=== PATIENT | male | born 1960 | race Caucasian/White ===

== ENCOUNTER 2017-10-29 07:30 | Inpatient (IN) | payer BC ==
[2017-10-26 11:56] VITALS: BMI 28.4
[2017-11-05] MEDS ORDERED: fentaNYL (PF) 50 MCG/ML 2 ML AMP IV PRN (14:39)
[2017-11-05] MEDS ORDERED: ONDANSETRON 4 MG/2 ML VIAL IVP ONE (14:39)
[2017-11-05] MEDS ORDERED: DEXAMETHASONE SOD PHOSPHATE 10 MG/ML 1 ML VIAL IV ONE (14:39)
[2017-11-05] MEDS ORDERED: LIDOCAINE 1% 20 ML VIAL (10MG/ML) FOR IV START INTRADERMA PRN (14:39)
[2017-11-05] MEDS ORDERED: MIDAZOLAM 2 MG/2 ML VIAL IV PRN (14:39)
[2017-11-06] MEDS ORDERED: TRANEXAMIC ACID 1,000 MG in SODIUM CHLORIDE 0.9% 50 ML IVPB ONE ×4 (05:00)
[2017-11-06] MEDS ORDERED: ceFAZolin IN SWFI 2 GM/20 ML SYRINGE IVP ONE (05:00)
[2017-11-06] MEDS ORDERED: MELOXICAM 7.5 MG TAB PO ONE (05:00)
[2017-11-06] MEDS ORDERED: ACETAMINOPHEN TAB 500 MG TAB PO ONE (05:00)
[2017-11-06] MEDS ORDERED: ROPIVACAINE 246.25 MG, EPINEPHrine 0.5 MG, KETOROLAC 30 MG, cloNIDine HCL/PF 80 MCG, WA... MISCELLANE ONE ×5 (06:20)
[2017-11-06] MEDS: LACTATED RINGERS 1,000 ML IV SCH ×2 (06:34→14:42)
[2017-11-06] MEDS ORDERED: MAGNESIUM HYDROXIDE 2,400 MG/10 ML CUP PO PRN (06:53)
[2017-11-06] MEDS ORDERED: NALOXONE 0.4 MG/ML 1 ML VIAL IV PRN (06:53)
[2017-11-06] MEDS ORDERED: DIAZEPAM 5 MG TAB PO PRN ×2 (06:53)
[2017-11-06] MEDS ORDERED: ONDANSETRON 4 MG/2 ML VIAL IVP PRN (06:53)
[2017-11-06] MEDS ORDERED: HYDROmorphone 1 MG/ML 1 ML SYRINGE IVP PRN ×3 (06:53)
[2017-11-06] MEDS ORDERED: hydrOXYzine PAMOATE 25 MG CAP PO PRN (06:53)
[2017-11-06] MEDS ORDERED: HYDROcodone/APAP 5-325MG 1 EACH TAB PO PRN (06:53)
[2017-11-06] MEDS ORDERED: ceFAZolin 3,000 MG in SODIUM CHLORIDE 0.9% IRRIGATIO 3,000 ML IRRIGATION ONE (08:02)
--- NOTE | 2017-11-06 09:00 | FL ---
EXAMINATION TYPE: FL guidance operating room, XR Hip Limited RT DATE OF EXAM: 11/06/2017 CLINICAL HISTORY: Hip replacement surgery for pain. TECHNIQUE: Fluoroscopy. Intraoperative limited views right hip. COMPARISON: None. FINDINGS: Fluoroscopic guidance was provided during hip replacement procedure performed by Dr. Mariella sellers. A total of 27 seconds of fluoroscopic time was utilized during the procedure and 2 spot intraop erative images are acquired. Images acquired show metallic hardware right hip satisfactory in position on frontal view. IMPRESSION: As Above.
--- NOTE | 2017-11-06 09:38 | XR ---
EXAMINATION TYPE: XR Hip Limited RT DATE OF EXAM: 11/06/2017 CLINICAL HISTORY: Right hip pain and osteoarthritis. TECHNIQUE: Single AP portable view of right hip is obtained immediately postoperatively. COMPARISON: None. FINDINGS: Metallic hardware from total right hip arthroplasty is seen and appears satisfactory in ali gnment and position. There is evidence of recent surgery with minimal surrounding subcutaneous gas. Some heterotopic ossification or residual spurring superior lateral aspect of acetabulum is noted. IMPRESSION: Metallic hardware from right hip arthroplasty is satisfactory in position.
[2017-11-06] MEDS ORDERED: LACTATED RINGERS 1,000 ML IV ONE (09:45)
--- NOTE | 2017-11-06 12:10 | P.OP ---
Date of Procedure: 11/06/17 Preoperative Diagnosis: Severe osteoarthritis right hip Postoperative Diagnosis: Severe osteoarthritis right hip Procedure(s) Performed: Right total hip arthroplasty with a direct anterior approach Implants: López and nephew Polarstem size 4 standard López & Nephew R3, 3 hole acetabular shell, 54 mm López & Nephew reflection 6.5 mm cancellus screw, 20 mm 2 López [employer] Nephew R3, XLPE 20 acetabular liner López & Nephew Oxinium femoral head 36 m, +8 All components were press-fit. The articulation is Oxinium on polyethylene. Anesthesia: spinal Surgeon: Josh Huff Eap Specialist #1: Meli Piper Estimated Blood Loss (ml): 300 (121 mL returned with Cell Saver) Pathology: other (Femoral head) Condition: stable Disposition: PACU Indications for Procedure: After failure of conservative treatment we discussed the surgical and nonsurgical treatment options at length. Patient wishes to proceed with a total hip arthroplasty with a direct anterior approach. Complications specific to this procedure were discussed at length, including but not limited to infection, leg length discrepancy, dislocation, and nerve injury. Patient is aware of all these complications and informed consent was obtained Operative Findings: The operative findings are consistent with severe osteoarthritis of the right hip Description of Procedure: Patient was seen and evaluated in the preoperative area, consent was reviewed, and the surgical site was marked with a skin marker. Patient was then brought to the operating room and given prophylactic antibiotics intravenously. 1 g of Tranexamic acid was also given. A spinal anesthetic was administered by the anesthesia department. The patient was then placed on the [place] table with the bony prominences well-padded. The hip area was then prepped and draped in usual sterile fashion. A universal timeout was then performed, which confirmed the patient's name, surgical site, ALLERGIES, and procedure being performed. Next the incision site was located at 1 cm distal and 1 cm lateral to the anterior superior iliac spine. The skin and subcutaneous tissues were sharply incised. Incision was carefully dissected down to the fascia overlying the tensor fascia rossy muscle. This fascia was then incised in line with the incision. Next, using blunt finger dissection, the tensor fascia rossy muscle was dissected off its investing fascia. The muscle was then carefully retracted laterally with a cobra retractor over the lateral neck of the femur. Next, the circumflex vessels were identified and cauterized using the AquaMantis device. The anterior hip capsule was then exposed. The capsule was then opened and an inverted T fashion. Cobra retractors were then placed intracapsularly. The proximal femur was then visualized. The femoral neck was then osteotomized appropriate level above the lesser trochanter. Small amount of traction was placed with the [place] table. A small wedge of bone was then removed from the remaining femoral head. Next, using a corkscrew femoral head was easily removed from the acetabulum. On gross visual inspection, the femoral head had complete loss of articular cartilage in multiple periarticular osteophytes. Attention was then turned to the acetabulum. the acetabulum was exposed and any remaining labrum was excised. Sequential reaming of the acetabulum was performed using fluoroscopic guidance. When the appropriate size was reached, a trial was then placed. The position and fit of the trial was checked with fluoroscopy. The trial was then removed. Then, using fluoroscopic guidance, the final implant was impacted at 20 of anteversion and 40 of abduction, and fully seated in the acetabulum. 2 screws were then placed in the acetabulum. Again fluoroscopy was used to check position of the screws. Next, the liner was then impacted, with a 20 elevated liner located in the anterior superior quadrant. Component locking was confirmed. Attention was then directed to the femur. With the aid of the [place] table, the femur was externally rotated to approximately 130, extended, and abducted under the opposite leg. A side hook was then placed under the proximal femur, and the side hook elevator was used to elevate the proximal femur. Retractors were then placed. A capsular release was performed, as well as a release of the conjoined tendon, which afforded excellent visualization of the proximal femur. Next, a box osteotome was used to lateralize the proximal femur. A merchandise execution leader was then used to locate the femoral canal. Sequential broaching was then performed with appropriate size which afforded excellent fixation in the proximal femur. A trial was then placed with appropriate head and neck, and the hip was gently reduced with the aid of the [place] table. Fluoroscopy was then used to check position of the components, as well as to ensure equal leg lengths. The hip was then gently dislocated and the trials were then removed. Final implants were then impacted and the hip was again reduced. Final fluoroscopic x-rays confirmed that the components were in anatomic position, as well as equal leg lengths. The hip was also taken through range of motion, and found to be stable. The hip was then copiously irrigated with antibiotic solution with pulsatile lavage. The hip was then irrigated with Irrisept solution. The soft tissues were then injected with a ropivacaine solution, which consisted of 246.25 mg of ropivacaine, 0.5 mg of epinephrine, 30 mg of Toradol, 80 g of clonidine, and 48.45 mL of sterile water, for a total of 100 mL of fluid injected. A second dose of 1 g of Tranexamic acid was also given. the fascia was then closed with 2-0 strata fix suture. The subcutaneous tissue was closed with 3-0 Vicryl. The subcuticular tissue was closed with 3-0 strata fix suture. The skin was then closed with Dermabond glue and a sterile silver dressing. The patient was then transferred to the recovery room in stable condition. The registered nurse first assistant СВЕТЛАНА Coppola was required due to the complexity of surgery, and the need for skilled surgical instrument mechanic for positioning, draping, exposure, retraction, and closure of the wound.
[2017-11-06] MEDS: SODIUM CHLORIDE 0.9% 1,000 ML IV SCH ×2 (14:42→23:06)
[2017-11-06] MEDS: ceFAZolin IN SWFI 2 GM/20 ML SYRINGE IVP SCH (16:12)
--- NOTE | 2017-11-06 17:36 | P.CONS ---
History of Present Illness - Reason for Consult Recommendation regarding antidepressive medications. - History of Present Illness Patient is a pleasant 57-year-old gentleman admitted for elective right hip or progresses sepsis and underwent surgery patient doesn't have any pain denied any fever chills nausea vomiting. Patient doesn't have a Eid catheter did not pass gas yet does have good bowel sounds. Review of Systems REVIEW OF SYSTEMS: CONSTITUTIONAL: No fever, no malaise, no fatigue. HEENT: No recent visual problems or hearing problems. Denied any sore throat. CARDIOVASCULAR: No chest pain, orthopnea, PND, no palpitations, no syncope. PULMONARY: No shortness of breath, no cough, no hemoptysis. GASTROINTESTINAL: No diarrhea, no nausea, no vomiting, no abdominal pain. Normoactive bowel sounds. NEUROLOGICAL: No headaches, no weakness, no numbness. HEMATOLOGICAL: Denies any bleeding or petechiae. GENITOURINARY: Denies any burning micturition, frequency, or urgency. MUSCULOSKELETAL/RHEUMATOLOGICAL: Denies any joint pain, swelling, or any muscle pain. ENDOCRINE: Denies any polyuria or polydipsia. The rest of the 14-point review of systems is negative. Past Medical History Past Medical History: Hypertension, Osteoarthritis (OA) Additional Past Medical History / Comment(s): AORTIC VALVE -SLIGHT LEAK" History of Any Multi-Drug Resistant Organisms: None Reported Past Surgical History: Appendectomy, Orthopedic Surgery Additional Past Surgical History / Comment(s): LEFT KNEE-ARTHROSCOPIC SURGERY, RIGHT ANKLE SURGERY, RIGHT WRIST SURGERY, LEFT THUMB Past Anesthesia/Blood Transfusion Reactions: No Reported Reaction Past Psychological History: No Psychological Hx Reported Smoking Status: Never smoker Past Alcohol Use History: Occasional Past Drug Use History: None Reported - Past Family History Father Family Medical History: Cancer Additional Family Medical History / Comment(s): LUNG CANCER Medications and Allergies Home Medications Medication Instructions Recorded Confirmed Type Losartan Potassium [Cozaar] 50 mg PO DAILY 06/25/15 11/06/17 History Allergies Allergy/AdvReac Type Severity Reaction Status Date / Time No Known Allergies Allergy Verified 11/06/17 07:21 Physical Exam Vitals: Vital Signs Temp Pulse Resp BP Pulse Ox 11/06/17 15:00 97.8 F 66 16 120/73 96 11/06/17 14:00 66 16 124/74 99 11/06/17 13:30 67 16 126/70 98 11/06/17 13:00 66 18 113/64 99 11/06/17 12:30 61 16 122/59 94 L 11/06/17 12:00 62 16 122/69 99 11/06/17 11:30 62 16 115/59 99 11/06/17 11:00 62 18 118/60 99 11/06/17 10:30 56 L 16 104/56 99 11/06/17 10:00 63 16 99/58 99 11/06/17 09:45 61 18 95/52 98 11/06/17 09:30 61 18 90/50 97 11/06/17 09:15 97 F L 66 16 90/53 98 11/06/17 06:11 98.3 F 76 16 136/83 95 Intake and Output 11/06/17 11/06/17 11/06/17 06:59 14:59 22:59 Intake Total 300 1301 Output Total 300 Balance 300 1001 Intake: IV 300 1301 Output: Estimated Blood Loss 300 Other: Weight 86.183 kg PHYSICAL EXAMINATION: GENERAL: The patient is alert and oriented x3, not in any acute distress. Well developed, well nourished. HEENT: Pupils are round and equally reacting to light. EOMI. No scleral icterus. No conjunctival pallor. Normocephalic, atraumatic. No pharyngeal erythema. No thyromegaly. CARDIOVASCULAR: S1 and S2 present. No murmurs, rubs, or gallops. PULMONARY: Chest is clear to auscultation, no wheezing or crackles. ABDOMEN: Soft, nontender, nondistended, normoactive bowel sounds. No palpable organomegaly. MUSCULOSKELETAL: No joint swelling or deformity. EXTREMITIES: No cyanosis, clubbing, or pedal edema. NEUROLOGICAL: Gross neurological examination did not reveal any focal deficits. SKIN: No rashes. Assessment and Plan Plan: -Right hip arthroplasty: Postoperative pain management due to prophylaxis per primary service will monitor for any postoperative complications. Patient is clinically doing well with well-controlled blood pressure at this time. -Hypertension will be resumed on losartan -Osteoarthritis primary
[2017-11-06] MEDS: ASPIRIN 325 MG TAB PO SCH (20:43)
[2017-11-06] MEDS ORDERED: SENNOSIDES-DOCUSATE SODIUM 1 EACH TAB PO SCH (21:00)
[2017-11-06] MEDS: HYDROcodone/APAP 5-325MG 1 EACH TAB PO PRN (22:57)
[2017-11-07] MEDS: ceFAZolin IN SWFI 2 GM/20 ML SYRINGE IVP SCH (00:23)
[2017-11-07] MEDS: HYDROcodone/APAP 5-325MG 1 EACH TAB PO PRN (06:41)
[2017-11-07 07:11] LABS: Basophils % (A) 0 %; Eosinophils # (A) 0.1 k/uL (0-0.7); Eosinophils % (A) 1 %; HCT 38.9 % (39.0-53.0); HGB 13.2 gm/dL (13.0-17.5); Lymphocytes # (A) 1.8 k/uL (1.0-4.8); Lymphocytes % (A) 21 %; MCH 31.8 pg (25.0-35.0); MCHC 33.8 g/dL (31.0-37.0); MCV 94.1 fL (80.0-100.0); Mean Platelet Volume 6.8; Monocytes # (A) 0.5 k/uL (0-1.0); Monocytes % (A) 5 %; Neutrophils # (A) 6.2 k/uL (1.3-7.7); Neutrophils % (A) 71 %; Platelet Count 174 k/uL (150-450); RBC 4.14 m/uL (4.30-5.90); RDW 12.5 % (11.5-15.5); WBC 8.7 k/uL (3.8-10.6)
[2017-11-07 07:54] VITALS: BP 108/70; PULSE 74; RESP 18; TEMP 98.1
[2017-11-07] MEDS: ASPIRIN 325 MG TAB PO SCH (08:38)
[2017-11-07] MEDS ORDERED: MELOXICAM 7.5 MG TAB PO SCH (09:00)
[2017-11-07] MEDS ORDERED: LOSARTAN 50 MG TAB PO SCH (09:00)
--- NOTE | 2017-11-07 09:15 | P.DS ---
Providers Date of admission: 11/06/17 05:45 Expected date of discharge: 11/07/17 Attending physician: Josh Huff Consults: 11/06/17 06:53 Consult Physician Routine Consulting Provider: Francois Hughes Consult Reason/Comments: medical management Do you want consulting provider notified?: Yes Primary care physician: Adarsh Maguire - Discharge Diagnosis(es) (1) Primary osteoarthritis of right hip Current Visit: Yes Status: Acute (2) Status post total hip replacement, right Current Visit: Yes Status: Acute Hospital Course: This is a 57-year-old male with known history of degenerative arthritis of the right hip. The patient presents for evaluation. After discussion and consideration patient elects to proceed with total hip arthroplasty. The patient is seen preoperatively by Dr. Huff and medically cleared for surgery by their primary care physician. Patient is admitted to [facility] on 11/06/2017 for total hip arthroplasty. The procedures performed without complication or sequelae. The patient is doing well postoperatively. Labs and vital signs are stable on day of discharge. On day of discharge patient's hip incision is healing well. There is minimal erythema. There is no drainage noted at this time. There is minimal soft tissue swelling to the hip and thigh. Patient has full foot and ankle motion without difficulty or pain. Neurovascular status to the right lower extremity is intact. Patient is discharged home in good condition. Please see med rec for accurate list of home medications. Plan - Discharge Summary Discharge Rx Participant: No New Discharge Prescriptions: New Aspirin 325 mg PO BID #60 tab HYDROcodone/APAP 5-325MG [Hudson 5-325] 1 - 2 tab PO Q4-6H PRN #84 tab PRN Reason: Pain Sennosides [Senokot] 1 tab PO BID #60 tablet No Action Losartan Potassium [Cozaar] 50 mg PO DAILY Discharge Medication List Losartan Potassium [Cozaar] 50 mg PO DAILY 06/25/15 [History] Aspirin 325 mg PO BID #60 tab 11/07/17 [Rx] HYDROcodone/APAP 5-325MG [Hudson 5-325] 1 - 2 tab PO Q4-6H PRN #84 tab 11/07/17 [ Rx] Sennosides [Senokot] 1 tab PO BID #60 tablet 11/07/17 [Rx] Follow up Appointment(s)/Referral(s): Josh Huff DO [Doctor of Osteopathic Medicine] - 2 Weeks Activity/Diet/Wound Care/Special Instructions: Weightbearing as tolerated with walker Leave dressing intact. Dressing may be removed by home care nurse in 10 days. May shower with dressing on. Follow-up with [facility] in 2 weeks, please call with any questions or concerns [phone] Discharge Disposition: HOME WITH HOME HEALTH SERVICES
--- NOTE | 2017-11-07 13:49 | P.PN ---
Subjective No overnight events patient did move his bowels. Clinically doing well. Objective - Vital Signs Vital signs: Vital Signs Temp 98.1 F 11/07/17 07:40 Pulse 74 11/07/17 07:40 Resp 18 11/07/17 07:40 BP 108/70 11/07/17 07:40 Pulse Ox 96 11/07/17 07:40 Intake & Output 11/06/17 11/07/17 11/07/17 18:59 06:59 18:59 Intake Total 1301 812.5 Output Total 800 Balance 501 812.5 Weight 86.183 kg Intake: IV 1301 Intake, IV Titration 812.5 Amount Sodium Chloride 0.9% 1, 812.5 000 ml @ 65 mls/hr IV . [id number] LADONNA Rx#:[id number] Output: Urine 500 Estimated Blood Loss 300 Other: Voiding Method Toilet # Voids 1 1 - Exam PHYSICAL EXAMINATION: GENERAL: The patient is alert and oriented x3, not in any acute distress. Well developed, well nourished. HEENT: Pupils are round and equally reacting to light. EOMI. No scleral icterus. No conjunctival pallor. Normocephalic, atraumatic. No pharyngeal erythema. No thyromegaly. CARDIOVASCULAR: S1 and S2 present. No murmurs, rubs, or gallops. PULMONARY: Chest is clear to auscultation, no wheezing or crackles. ABDOMEN: Soft, nontender, nondistended, normoactive bowel sounds. No palpable organomegaly. MUSCULOSKELETAL: Deferred to orthopedic surgery EXTREMITIES: No cyanosis, clubbing, or pedal edema. NEUROLOGICAL: Gross neurological examination did not reveal any focal deficits. SKIN: No rashes. - Labs CBC & Chem 7: 11/07/17 06:36 Labs: Abnormal Lab Results - Last 24 Hours (Table) 11/07/17 Range/Units 06:36 RBC 4.14 L (4.30-5.90) m/uL Hct 38.9 L (39.0-53.0) % Assessment and Plan Plan: -Right hip arthroplasty: Postoperative pain management due to prophylaxis per primary service will monitor for any postoperative complications. Patient is clinically doing well with well-controlled blood pressure at this time. -Hypertension resumed on losartan -Osteoarthritis primary
== END 2017-11-07 12:15 | disposition home health service (06) | DRG 470 ==
LOC: 2ORMAIN 11-06 05:45 → 3SUR 11-06 14:19
PROVIDERS: ADMIT Orthopaedic Surgery; ATTEND Orthopaedic Surgery
PROC: 0SR906A Replacement of Right Hip Joint with Oxidized Zirconium on Polyethylene Synthetic Substitute, Uncemented, Open Approach (ICD-10-PCS; principal; 2017-11-06 07:30)
DX: M16.11 Unilateral primary osteoarthritis, right hip (principal); Z79.899 Other long term (current) drug therapy; Z82.49 Family history of ischemic heart disease and other diseases of the circulatory system; I10 Essential (primary) hypertension; Z80.1 Family history of malignant neoplasm of trachea, bronchus and lung
CPT/HCPCS: 73501; 85025; 86850; 86891; 86900; 86901; 88300

== ENCOUNTER → 2017-10-29 | Outpatient (CLI) | payer BC ==
[2017-10-29 11:53] LABS: Appearance,Urine Clear (Clear); Bilirubin,Urine Negative (Negative); Blood,Urine Negative (Negative); Color,Urine Yellow; Glucose,Urine (UA) Negative (Negative); Ketones,Urine Negative (Negative); Leukocyte Esterase,Urine Negative (Negative); Nitrite,Urine Negative (Negative); PH, Urine 6.5 (5.0-8.0); Protein,Urine Negative (Negative); Specific Gravity,Urine 1.016 (1.001-1.035); Urobilinogen,Urine <2.0 mg/dL (<2.0)
[2017-10-29 12:12] LABS: HCT 47.8 % (39.0-53.0); MCH 31.1 pg (25.0-35.0); MCHC 33.5 g/dL (31.0-37.0); Mean Platelet Volume 6.7; Platelet Count 181 k/uL (150-450); RBC 5.14 m/uL (4.30-5.90); RDW 12.7 % (11.5-15.5); WBC 5.3 k/uL (3.8-10.6)
[2017-10-29 12:21] LABS: Partial Thromboplastin Time 22.4 sec (22.0-30.0); Prothrombin Time 10.1 sec (9.0-12.0)
[2017-10-29 12:25] LABS: ALT 35 U/L (21-72); AST 25 U/L (17-59); Alkaline Phosphatase 68 U/L (38-126); Anion Gap 5 mmol/L; Blood Urea Nitrogen 15 mg/dL (9-20); Calcium 9.3 mg/dL (8.4-10.2); Carbon Dioxide 30 mmol/L (22-30); Chloride 104 mmol/L (98-107); Glucose 84 mg/dL (74-99); Potassium 4.7 mmol/L (3.5-5.1); Sodium 139 mmol/L (137-145); Total Bilirubin 1.8 mg/dL (0.2-1.3); Total Protein 6.5 g/dL (6.3-8.2)
== END | disposition home or self-care (01) ==
LOC: LABWHC1 11:21
PROVIDERS: ATTEND Orthopaedic Surgery
DX: Z01.818 Encounter for other preprocedural examination (principal); Z01.812 Encounter for preprocedural laboratory examination
CPT/HCPCS: 36415; 80053; 81003; 85027; 85610; 85730; 87070; 93005

== ENCOUNTER → 2018-02-18 | Outpatient (CLI) | payer BC ==
--- NOTE | 2018-02-18 18:14 | ECHOF ---
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 This was a technically adequate study. The left ventricular size is normal. Left ventricular wall thickness is normal. Overall left vent ricular systolic function is normal with, an EF between 55 - 60 %. The right ventricle is mildly enlarged. Normal LA size by volume 22+/-6 ml/m2. The right atrial size is normal. Trace amount of aortic regurgitation. There is mild aortic stenosis present. Peak/mean gradient across the Aortic Valve is 20.50mmHg / 11.21mmHg. Functionally bicuspid aortic valve. The mitral valve is normal. Mild mitral regurgitation is present. Mild tricuspid regurgitation present. There is no evidence of pulmonary hypertension. The right v entricular systolic pressure, as measured by Doppler, is 33.86mmHg. Trace/mild (physiologic) pulmonic regurgitation. The aortic root size is normal. Normal inferior vena cava with normal inspiratory collapse consistent with estimated right atrial pre ssure of 5 mmHg. There is no pericardial effusion. CONCLUSIONS -------- 1. Sinus rhythm. 2. This was a technically adequate study. 3. The left ventricular size is normal. 4. Left ventricular wall thickness is normal. 5. Overall left ventricular systolic function is normal with, an EF between 55 - 60 %. 6. The right ventricle is mildly enlarged. 7. Normal LA size by volume 22+/-6 ml/m2. 8. Trace amount of aortic regurgitation. 9. There is mild aortic stenosis present. 10. Peak/mean gradient across the Aortic Valve is 20.50mmHg / 11.21mmHg. 11. Functionally bicuspid aortic valve. 12. Mild mitral regurgitation is present. 13. There is no evidence of pulmonary hypertension. 14. Trace/mild (physiologic) pulmonic regurgitation. 15. The aortic root size is normal. 16. There is no pericardial effusion. NURSING AGENCY MANAGER: Igor Orellana RDCS
== END | disposition home or self-care (01) ==
LOC: RADECHMAIN 16:15
PROVIDERS: ATTEND Family Medicine
DX: Q23.1 Congenital insufficiency of aortic valve (principal); I34.0 Nonrheumatic mitral (valve) insufficiency
CPT/HCPCS: 93306

== ENCOUNTER → 2019-01-16 | Outpatient (CLI) | payer BC ==
--- NOTE | 2019-01-16 08:43 | US ---
EXAMINATION TYPE: US venous doppler duplex LE BI DATE OF EXAM: 01/16/2019 8:04 AM COMPARISON: NONE CLINICAL HISTORY: I26.99 Pulmonary embolism, I82.409 DVT lower extremity. Right leg DVT and PE diagno sed at [facility] 2019. SIDE PERFORMED: Bilateral TECHNIQUE: The lower extremity deep venous system is examined utilizing real time linear array sonog maribel with graded compression, doppler sonography and color-flow sonography. VESSELS IMAGED: Common Femoral Vein Deep Femoral Vein Greater Saphenous Vein * Femoral Vein Popliteal Vein Small Saphenous Vein * Proximal Calf Veins (* superficial vessels) Right Leg: Echogenic Wall changes are noted distal Right Femoral Vein suggesting chronic DVT. Negati ve for Acute DVT Left Leg: Negative for DVT IMPRESSION: 1. Findings suggest chronic DVT right lower extremity. No evidence for acute DVT bilaterally.
--- NOTE | 2019-01-16 11:47 | CT ---
EXAMINATION TYPE: CT angio chest DATE OF EXAM: 01/16/2019 COMPARISON: October 21, 2015 HISTORY: Pulmonary embolism CT DLP: 546 mGycm CONTRAST: CT chest with contrast and 3D reconstruction with MIP imaging is performed without and with IV Contra st, patient injected with 100 ml mL of Isovue 370. Contrast-enhanced CT of the chest was performed through the course of the pulmonary arteries with radha g and mediastinal window settings submitted. 3D reconstruction with MIP imaging was also performed. PULMONARY ARTERIES: The pulmonary arteries and their major tributaries are patent. I do not see remington dence for sizable filling defect to suggest pulmonary embolic process. LUNGS: The lungs are clear and free of infiltrate. No evidence for atelectasis. No pulmonary nodule or mass is detected. No pleural effusion. MEDIASTINUM: Thoracic aorta is of normal caliber,however, evaluation is limited given timing of the contrast bolus. If there is concern for thoracic aortic pathology consider GIOVANNA. Correlate clinicall y . The heart is not enlarged. No evidence for mediastinal mass. No mediastinal lymph nodes greater than 1cm. HILAR STRUCTURES: No evidence for mass. No hilar lymph nodes greater than 1 cm. UPPER ABDOMEN: No significant abnormality is seen. IMPRESSION: 1. No evidence for Pulmonary embolism at this time.
== END | disposition home or self-care (01) ==
LOC: RADCTMAIN 07:01
PROVIDERS: ATTEND Family Medicine
DX: I26.99 Other pulmonary embolism without acute cor pulmonale (principal); I82.409 Acute embolism and thrombosis of unspecified deep veins of unspecified lower extremity
CPT/HCPCS: 93970; 71275; Q9967

== ENCOUNTER → 2019-06-13 | Outpatient (CLI) | payer BC ==
--- NOTE | 2019-06-13 09:49 | US ---
EXAMINATION TYPE: US venous doppler duplex LE DATE OF EXAM: 06/13/2019 9:26 AM COMPARISON: US 2018 CLINICAL HISTORY: 59-year-old male I82.409 Deep venous thrombosis. Follow up history of DVT, no new s ymptoms, patient off blood thinners since March SIDE PERFORMED: Bilateral TECHNIQUE: The lower extremity deep venous system is examined utilizing real time linear array sonog maribel with graded compression, doppler sonography and color-flow sonography. VESSELS IMAGED: External Iliac Vein (EIV) Common Femoral Vein Deep Femoral Vein Greater Saphenous Vein * Femoral Vein Popliteal Vein Small Saphenous Vein * Proximal Calf Veins (* superficial vessels) Right Leg: Partial compression at distal femoral vein Left Leg: Appears negative for DVT IMPRESSION: 1. No evidence for DVT within the left lower extremity imaged from the groin to the upper calf. 2. Right lower extremity positive for residual nonocclusive DVT given partial compressibility along t he lower femoral vein.
== END | disposition home or self-care (01) ==
LOC: RADUSWWP 08:56
PROVIDERS: ATTEND Family Medicine
DX: I82.411 Acute embolism and thrombosis of right femoral vein (principal)
CPT/HCPCS: 93970

== ENCOUNTER → 2020-01-09 | Outpatient (CLI) | payer BC ==
--- NOTE | 2020-01-19 08:12 | ECHOF ---
Referral Reason: MEASUREMENTS -------- HEIGHT: 175.3 cm WEIGHT: 90.7 kg BP: RVIDd: 4.6 cm (< 3.3) IVSd: 1.2 cm (0.6 - 1.1) LVIDd: 4.3 cm (3.9 - 5.3) LVPWd: 1.3 cm (0.6 - 1.1) IVSs: 2.0 cm LVIDs: 2.9 cm LVPWs: 1.8 cm LAESV Index (A-L): 15.47 ml/m Ao Diam: 3.2 cm (2.0 - 3.7) AV Cusp: 1.7 cm (1.5 - 2.6) MV EXCURSION: 16.659 mm (> 18.000) MV EF SLOPE: 78 mm/s (70 - 150) EPSS: 0.7 cm MV E Edd: 0.87 m/s MV DecT: 181 ms MV A Edd: 0.55 m/s MV E/A Ratio: 1.59 AV maxP.55 mmHg AV maxP.55 mmHg AV meanP.93 mmHg AR PHT: 384 ms RAP: 5.00 mmHg RVSP: 23.81 mmHg FINDINGS -------- Sinus rhythm. This was a technically adequate study. The left ventricular size is normal. There is mild concentric left ventricular hypertrophy. Overa ll left ventricular systolic function is normal with, an EF between 55 - 60 %. The diastolic fillin g pattern is normal for the age of the patient 11.87. The right ventricle is moderately enlarged. Normal LA size by volume 22+/-6 ml/m2. The right atrial size is normal. Interatrial and interventricular septum intact. There is mild aortic regurgitation. There is mild aortic stenosis present. Peak/mean gradient acr oss the Aortic Valve is 16.55mmHg / 8.93mmHg. Can't exclude possible Bicuspid Aov. There is trace mitral regurgitation. Mild tricuspid regurgitation present. There is no evidence of pulmonary hypertension. The right v entricular systolic pressure, as measured by Doppler, is 23.81mmHg. There is no pulmonic regurgitation present. The aortic root and ascending aorta are dilated measuring up to (3.9) cm. Normal inferior vena cava with normal inspiratory collapse consistent with estimated right atrial pre ssure of 5 mmHg. There is no pericardial effusion. CONCLUSIONS -------- 1. The left ventricular size is normal. 2. There is mild concentric left ventricular hypertrophy. 3. Overall left ventricular systolic function is normal with, an EF between 55 - 60 %. 4. The diastolic filling pattern is normal for the age of the patient 11.87 5. The right ventricle is moderately enlarged. 6. There is mild aortic regurgitation. 7. There is mild aortic stenosis present. 8. Peak/mean gradient across the Aortic Valve is 16.55mmHg / 8.93mmHg. 9. Can't exclude possible Bicuspid Aov. 10. There is trace mitral regurgitation. 11. Mild tricuspid regurgitation present. 12. The aortic root and ascending aorta are dilated measuring up to (3.9) cm. PART TIME RECEPTIONIST: Mercedes Weathers RDCS
== END | disposition home or self-care (01) ==
LOC: RADECHMAIN 14:49
PROVIDERS: ATTEND Family Medicine
DX: I08.2 Rheumatic disorders of both aortic and tricuspid valves (principal); I77.810 Thoracic aortic ectasia
CPT/HCPCS: 93306

== ENCOUNTER 2021-01-27 16:52 | Observation (INO) | payer BC ==
[2021-01-27] MEDS ORDERED: HEPARIN SODIUM 1,000 UN/ML (10ML VL) IV ONE (17:49)
[2021-01-27] MEDS ORDERED: HEPARIN SODIUM 1,000 UN/ML (10ML VL) IV PRN (17:49)
[2021-01-27] MEDS ORDERED: HEPARIN SOD,PORK IN 0.45% NACL 25,000 UNIT in 0.45% NACL 1 250ML.BAG IV SCH (18:00)
[2021-01-27 18:16] LABS: Basophils # (A) 0.1 k/uL (0-0.2); Basophils % (A) 2 %; Eosinophils # (A) 0.7 k/uL (0-0.7); Eosinophils % (A) 11 %; Lymphocytes # (A) 1.6 k/uL (1.0-4.8); Lymphocytes % (A) 23 %; MCH 32.6 pg (25.0-35.0); MCHC 34.8 g/dL (31.0-37.0); MCV 93.7 fL (80.0-100.0); Mean Platelet Volume 6.9; Monocytes # (A) 0.4 k/uL (0-1.0); Monocytes % (A) 6 %; Neutrophils # (A) 3.9 k/uL (1.3-7.7); Neutrophils % (A) 57 %; Platelet Count 181 k/uL (150-450); RBC 4.91 m/uL (4.30-5.90); RDW 12.9 % (11.5-15.5)
[2021-01-27 18:25] LABS: ALT 33 U/L (4-49); AST 29 U/L (17-59); African American GFR (CKD) >90 (>60 ml/min/1.73 sqM); Albumin 3.9 g/dL (3.5-5.0); Alkaline Phosphatase 90 U/L (38-126); Anion Gap 8 mmol/L; Blood Urea Nitrogen 17 mg/dL (9-20); Calcium 9.1 mg/dL (8.4-10.2); Carbon Dioxide 23 mmol/L (22-30); Chloride 105 mmol/L (98-107); Glucose 93 mg/dL (74-99); Non-African American GFR(CKD) >90 (>60 ml/min/1.73 sqM); Potassium 4.6 mmol/L (3.5-5.1); Sodium 136 mmol/L (137-145); Total Bilirubin 0.9 mg/dL (0.2-1.3); Total Protein 6.7 g/dL (6.3-8.2)
[2021-01-27 18:33] LABS: Prothrombin Time 10.3 sec (9.0-12.0)
[2021-01-27 19:07] LABS: Partial Thromboplastin Time 20.6 sec (22.0-30.0)
[2021-01-27] MEDS ORDERED: NALOXONE 0.4 MG/ML 1 ML VIAL IV PRN (19:09)
--- NOTE | 2021-01-27 19:09 | ED ---
SOB HPI - General Chief Complaint: Shortness of Breath Stated Complaint: PE Sent from CT Source: patient Mode of arrival: ambulatory Limitations: no limitations - History of Present Illness Initial Comments: 61-year-old male with past medical history of DVT, bicuspid aortic valve who presents to the emergency department from outpatient CT. Patient has had exertional shortness of breath over the past couple weeks. He followed up with his primary care physician and subsequently with Dr. Brand. They did order an outpatient CT which was performed today. CT was positive for PE and therefore the patient was sent into the emergency department for anticoagulation. Reports to a history of DVT after surgery. It was on anticoagulation for 9 months and then was taken off. States that his symptoms feel similar. Denies fevers, chills or cough. No chest pain. No other alleviating, precipitating or modifying factors - Related Data Home Medications Medication Instructions Recorded Confirmed Losartan Potassium [Cozaar] 50 mg PO DAILY 06/25/15 01/27/21 Cyclobenzaprine [Flexeril] 10 mg PO HS PRN 01/27/21 01/27/21 Metoprolol Succinate (ER) [Toprol 25 mg PO DAILY 01/27/21 01/27/21 Xl] Allergies Allergy/AdvReac Type Severity Reaction Status Date / Time No Known Allergies Allergy Verified 01/27/21 18:24 Review of Systems ROS Statement: Those systems with pertinent positive or pertinent negative responses have been documented in the HPI. ROS Other: All systems not noted in ROS Statement are negative. Past Medical History Past Medical History: Hypertension, Osteoarthritis (OA) Additional Past Medical History / Comment(s): AORTIC VALVE -SLIGHT LEAK" History of Any Multi-Drug Resistant Organisms: None Reported Past Surgical History: Appendectomy, Orthopedic Surgery Additional Past Surgical History / Comment(s): LEFT KNEE-ARTHROSCOPIC SURGERY, RIGHT ANKLE SURGERY, RIGHT WRIST SURGERY, LEFT THUMB Past Anesthesia/Blood Transfusion Reactions: No Reported Reaction Past Psychological History: No Psychological Hx Reported Smoking Status: Never smoker Past Alcohol Use History: Occasional Past Drug Use History: None Reported - Past Family History Father Family Medical History: Cancer Additional Family Medical History / Comment(s): LUNG CANCER General Exam Limitations: no limitations Course Vital Signs 01/27/21 01/27/21 01/27/21 17:26 17:51 18:43 Temperature 98.4 F Pulse Rate 65 60 Respiratory 20 18 18 Rate Blood Pressure 153/90 131/94 O2 Sat by Pulse 97 98 Oximetry Medical Decision Making - Medical Decision Making Upon arrival the patient was placed into room 28. A thorough history and physical exam was performed. I did review the patient's CT which demonstrates new bilateral acute pulmonary emboli greater in the right lung without CT evidence for RV strain. Laboratory studies are obtained. Coagulation studies are normal and therefore the patient is started on a heparin drip. Patient will be admitted to [facility]. Spoke with Dr. Munson. Dr. Mclean will be consulted. Patient remained in stable condition awaiting a bed - Lab Data Result diagrams: 01/27/21 18:08 01/27/21 18:08 Lab Results 01/27/21 01/27/21 01/27/21 Range/Units 18:08 18:08 18:08 WBC 7.0 (3.8-10.6) k/uL RBC 4.91 (4.30-5.90) m/uL Hgb 16.0 (13.0-17.5) gm/dL Hct 46.0 (39.0-53.0) % MCV 93.7 (80.0-100.0) fL MCH 32.6 (25.0-35.0) pg MCHC 34.8 (31.0-37.0) g/dL RDW 12.9 (11.5-15.5) % Plt Count 181 (150-450) k/uL MPV 6.9 Neutrophils % 57 % Lymphocytes % 23 % Monocytes % 6 % Eosinophils % 11 % Basophils % 2 % Neutrophils # 3.9 (1.3-7.7) k/uL Lymphocytes # 1.6 (1.0-4.8) k/uL Monocytes # 0.4 (0-1.0) k/uL Eosinophils # 0.7 (0-0.7) k/uL Basophils # 0.1 (0-0.2) k/uL PT 10.3 (9.0-12.0) sec INR 1.0 (<1.2) APTT 20.6 L (22.0-30.0) sec Sodium 136 L (137-145) mmol/L Potassium 4.6 (3.5-5.1) mmol/L Chloride 105 (98-107) mmol/L Carbon Dioxide 23 (22-30) mmol/L Anion Gap 8 mmol/L BUN 17 (9-20) mg/dL Creatinine 0.83 (0.66-1.25) mg/dL Est GFR (CKD-EPI)AfAm >90 (>60 ml/min/1.73 sqM) Est GFR (CKD-EPI)NonAf >90 (>60 ml/min/1.73 sqM) Glucose 93 (74-99) mg/dL Plasma Lactic Acid Thompson (0.7-2.0) mmol/L Calcium 9.1 (8.4-10.2) mg/dL Total Bilirubin 0.9 (0.2-1.3) mg/dL AST 29 (17-59) U/L ALT 33 (4-49) U/L Alkaline Phosphatase 90 (38-126) U/L Troponin I (0.000-0.034) ng/mL NT-Pro-B Natriuret Pep pg/mL Total Protein 6.7 (6.3-8.2) g/dL Albumin 3.9 (3.5-5.0) g/dL 01/27/21 01/27/21 01/27/21 Range/Units 18:08 18:08 18:08 WBC (3.8-10.6) k/uL RBC (4.30-5.90) m/uL Hgb (13.0-17.5) gm/dL Hct (39.0-53.0) % MCV (80.0-100.0) fL MCH (25.0-35.0) pg MCHC (31.0-37.0) g/dL RDW (11.5-15.5) % Plt Count (150-450) k/uL MPV Neutrophils % % Lymphocytes % % Monocytes % % Eosinophils % % Basophils % % Neutrophils # (1.3-7.7) k/uL Lymphocytes # (1.0-4.8) k/uL Monocytes # (0-1.0) k/uL Eosinophils # (0-0.7) k/uL Basophils # (0-0.2) k/uL PT (9.0-12.0) sec INR (<1.2) APTT (22.0-30.0) sec Sodium (137-145) mmol/L Potassium (3.5-5.1) mmol/L Chloride (98-107) mmol/L Carbon Dioxide (22-30) mmol/L Anion Gap mmol/L BUN (9-20) mg/dL Creatinine (0.66-1.25) mg/dL Est GFR (CKD-EPI)AfAm (>60 ml/min/1.73 sqM) Est GFR (CKD-EPI)NonAf (>60 ml/min/1.73 sqM) Glucose (74-99) mg/dL Plasma Lactic Acid Thompson 0.7 (0.7-2.0) mmol/L Calcium (8.4-10.2) mg/dL Total Bilirubin (0.2-1.3) mg/dL AST (17-59) U/L ALT (4-49) U/L Alkaline Phosphatase (38-126) U/L Troponin I <0.012 (0.000-0.034) ng/mL NT-Pro-B Natriuret Pep 72 pg/mL Total Protein (6.3-8.2) g/dL Albumin (3.5-5.0) g/dL - EKG Data EKG Comments: EKG demonstrates a sinus bradycardia with a ventricular rate of 56. DE interval 190. QRS 102. QTC of 41. Inverted T waves and Q waves in lead 3 Disposition Clinical Impression: Pulmonary embolism Disposition: ADMITTED IP TO THIS HOSP Condition: Stable Is patient prescribed a controlled substance at d/c from ED?: No Decision to Admit Reason: Admit from EC Decision Date: 01/27/21 Decision Time: 19:09
--- NOTE | 2021-01-28 01:40 | P.HPIM ---
History of Present Illness H&P Date: 01/27/21 Chief Complaint: PE 61-year-old male with history of hypertension controlled Patient comes in from his cardiology office due to new diagnosis of pulmonary embolism on his CT angiogram chest which showed bilateral PE right more than left. No evidence of RV strain Patient reports over the past couple weeks he's been having progressive exertional dyspnea with his regular physical activity of playing tennis and basketball. He denies any leg swelling denies any recent hospitalization or long distance traveling denies being immobile or any injuries to his legs. However he does report history of provoked venous thromboembolism few years ago after a hip replacement surgery. He does recall about 4 weeks ago he had colonoscopy performed which was normal this is part of his routine health care. Patient otherwise denies any coughing denies any hemoptysis however he is getting exertional dyspnea with regular physical activity. He denies any history of factor V Leyden or any other blood coagulopathies Review of Systems Pertinent positives as noted in HPI. All other systems were reviewed and are negative Past Medical History Past Medical History: Hypertension, Osteoarthritis (OA) Additional Past Medical History / Comment(s): AORTIC VALVE -SLIGHT LEAK" History of Any Multi-Drug Resistant Organisms: None Reported Past Surgical History: Appendectomy, Orthopedic Surgery Additional Past Surgical History / Comment(s): LEFT KNEE-ARTHROSCOPIC SURGERY, RIGHT ANKLE SURGERY, RIGHT WRIST SURGERY, LEFT THUMB Past Anesthesia/Blood Transfusion Reactions: No Reported Reaction Past Psychological History: No Psychological Hx Reported Smoking Status: Never smoker Past Alcohol Use History: Occasional Past Drug Use History: None Reported - Past Family History Father Family Medical History: Cancer Additional Family Medical History / Comment(s): LUNG CANCER Medications and Allergies Home Medications Medication Instructions Recorded Confirmed Type Losartan Potassium [Cozaar] 50 mg PO DAILY 06/25/15 01/27/21 History Cyclobenzaprine [Flexeril] 10 mg PO HS PRN 01/27/21 01/27/21 History Metoprolol Succinate (ER) [Toprol 25 mg PO DAILY 01/27/21 01/27/21 History Xl] Allergies Allergy/AdvReac Type Severity Reaction Status Date / Time No Known Allergies Allergy Verified 01/27/21 18:24 Physical Exam Vitals: Vital Signs Temp Pulse Resp BP Pulse Ox 01/27/21 18:43 18 01/27/21 17:51 60 18 131/94 98 01/27/21 17:26 98.4 F 65 20 153/90 97 Intake and Output 01/27/21 01/27/21 01/27/21 06:59 14:59 22:59 Other: Weight 88.451 kg Constitutional: No acute distress, conversant, pleasant Eyes: Anicteric sclerae, moist conjunctiva, Pupils equal round reactive to light ENMT: NC/AT Oropharynx clear, no erythema, or exudates Neck: Supple, FROM, no masses, or JVD No carotid bruits No thyromegaly Lungs: Clear to auscultation Clear to percussion Normal respiratory effort, no accessory muscle use Cardiovascular: Heart regular in rate and rhythm, No murmurs, gallops, or rubs No peripheral edema Abdominal: Soft Nontender, no guarding, rebound or rigidity Abdomen moving with respiration Normoactive bowel sounds No hepatomegaly, No splenomegaly No palpable mass No abdominal wall hernia noted Skin: Normal temperature, tone, texture, turgor No induration No subcutaneous nodules No rash, lesions No ulcers Extremities: No digital cyanosis No clubbing Pedal pulses intact and symmetrical Radial pulses intact and symmetrical No calf tenderness Psychiatric: Alert and oriented to person, place and time Appropriate affect fair judgement Neuro Muscles Strength 5/5 in all 4 extremities Sensation to light touch grossly present throughout Cranial nerves II-XII grossly intact No focal sensory deficits Lymphatics: no palpable cervical or supraclavicular , or inguinal lymph nodes Results CBC & Chem 7: 01/27/21 18:08 01/27/21 18:08 Labs: Abnormal Lab Results - Last 24 Hours (Table) 01/27/21 01/27/21 Range/Units 18:08 18:08 APTT 20.6 L (22.0-30.0) sec Sodium 136 L (137-145) mmol/L Assessment and Plan Assessment: Symptomatic pulmonary embolism unprovoked Patient started on heparin drip Patient will be transitioned to by mouth anticoagulation in a.m. await cardiology recommendations as patient has history of bicuspid aortic valve Supplemental oxygen as needed currently patient on room air with oxygen sat 98% Patient would qualify for lifelong anticoagulation Imaging showed no evidence of RV strain, no elevated troponins, Hypertension resume home blood pressure medications Full code Anticipated length of stay less than 2 midnights Anticipated discharge home
[2021-01-28] MEDS ORDERED: CYCLOBENZAPRINE 10 MG TAB PO PRN (04:00)
[2021-01-28 06:23] VITALS: BP 109/73; PULSE 66; RESP 16; TEMP 97.5
[2021-01-28 08:08] LABS: Basophils # (A) 0.1 k/uL (0-0.2); Basophils % (A) 1 %; Eosinophils # (A) 0.6 k/uL (0-0.7); Eosinophils % (A) 12 %; HCT 49.9 % (39.0-53.0); HGB 16.8 gm/dL (13.0-17.5); Lymphocytes # (A) 1.3 k/uL (1.0-4.8); Lymphocytes % (A) 24 %; MCH 32.1 pg (25.0-35.0); MCHC 33.7 g/dL (31.0-37.0); MCV 95.2 fL (80.0-100.0); Mean Platelet Volume 7.2; Monocytes # (A) 0.3 k/uL (0-1.0); Monocytes % (A) 6 %; Neutrophils # (A) 2.9 k/uL (1.3-7.7); Neutrophils % (A) 54 %; Platelet Count 187 k/uL (150-450); RBC 5.24 m/uL (4.30-5.90); RDW 12.9 % (11.5-15.5); WBC 5.4 k/uL (3.8-10.6)
[2021-01-28 08:57] LABS: African American GFR (CKD) >90 (>60 ml/min/1.73 sqM); Anion Gap 7 mmol/L; Blood Urea Nitrogen 14 mg/dL (9-20); Calcium 9.2 mg/dL (8.4-10.2); Carbon Dioxide 24 mmol/L (22-30); Chloride 107 mmol/L (98-107); Glucose 88 mg/dL (74-99); Non-African American GFR(CKD) >90 (>60 ml/min/1.73 sqM); Sodium 138 mmol/L (137-145)
[2021-01-28] MEDS ORDERED: LOSARTAN 50 MG TAB PO SCH (09:00)
[2021-01-28] MEDS ORDERED: METOPROLOL SUCCINATE (ER) 25 MG TAB.ER.24H PO SCH (09:00)
[2021-01-28 09:01] LABS: Potassium 5.1 mmol/L (3.5-5.1)
--- NOTE | 2021-01-28 11:00 | ECHOF ---
Referral Reason:pe MEASUREMENTS -------- HEIGHT: 172.7 cm WEIGHT: 88.5 kg BP: RVIDd: 3.7 cm (< 3.3) IVSd: 1.1 cm (0.6 - 1.1) LVIDd: 4.0 cm (3.9 - 5.3) LVPWd: 1.7 cm (0.6 - 1.1) IVSs: 1.8 cm LVIDs: 2.6 cm LVPWs: 1.8 cm LA Diam: 3.2 cm (2.7 - 3.8) LAESV Index (A-L): 14.89 ml/m Ao Diam: 3.2 cm (2.0 - 3.7) LA Diam: 3.7 cm (2.7 - 3.8) MV EXCURSION: 26.377 mm (> 18.000) MV EF SLOPE: 113 mm/s (70 - 150) EPSS: 0.6 cm MV E Edd: 0.52 m/s MV DecT: 175 ms MV A Edd: 0.65 m/s MV E/A Ratio: 0.79 AV maxP.77 mmHg AV meanP.87 mmHg RAP: 5.00 mmHg RVSP: 18.11 mmHg FINDINGS -------- Sinus rhythm. This was a technically adequate study. The left ventricular size is normal. There is mild concentric left ventricular hypertrophy. Overa ll left ventricular systolic function is normal with, an EF between 55 - 60 %. The right ventricle is mildly enlarged. Normal LA size by volume 22+/-6 ml/m2. The right atrial size is normal. Trace to mild aortic regurgitation. Peak/mean gradient across the Aortic Valve is 15.77mmHg / 7.87m mHg. Aortic valve is functionally bicuspid and is moderately thickened. Mild mitral annular calcification present. Mild mitral regurgitation is present. The tricuspid valve appears structurally normal. Mild tricuspid regurgitation present. Right vent ricular systolic pressure is normal at < 35 mmHg. The pulmonic valve was not well visualized. Aortic Root is mildlly dilated and measures 3.8cm. There is no pericardial effusion. CONCLUSIONS -------- 1. There is mild concentric left ventricular hypertrophy. 2. Overall left ventricular systolic function is normal with, an EF between 55 - 60 %. 3. The right ventricle is mildly enlarged. 4. Normal LA size by volume 22+/-6 ml/m2. 5. Trace to mild aortic regurgitation. 6. Peak/mean gradient across the Aortic Valve is 15.77mmHg / 7.87mmHg. 7. Aortic valve is functionally bicuspid and is moderately thickened. 8. Mild mitral regurgitation is present. 9. Mild tricuspid regurgitation present. 10. Aortic Root is mildlly dilated and measures 3.8cm. 11. There is no pericardial effusion. PRACTICE ADVISOR: Dianne Garcia RDCS
[2021-01-28] MEDS ORDERED: APIXABAN 5 MG TAB PO SCH (11:15)
--- NOTE | 2021-01-28 11:17 | P.CRDCN ---
History of Present Illness Consult date: 01/28/21 History of present illness: This is a 61-year-old gentleman who has been experiencing exertional dyspnea with activity, like playing tennis and basketball. Denied any orthopnea, paroxysmal nocturnal dyspnea. Denied any chest pain or shortness of breath. Patient was seen by Dr. Mclean. He had an outpatient computed tomography scan which showed evidence of pulmonary emboli. Patient is advised to come to the emergency room for admission and further treatment. Patient is feeling better. No complaints of any chest pain or shortness of breath, at least at rest. Roc swenson doesn't have any tachycardia or tachypnea. His echo Cardigan showed normal LV function with mild right ventricular dilatation. At this point patient could be continued with anti-cognition therapy. As further recommendations. Probably could be discharged home to have follow-up as an outpatient. This shortness of breath has been going on for 2-3 weeks. EKG showed a sinus rhythm and sinus bradycardia. Lab values showed normal CBC. Normal electrolytes. Normal troponin values and BNP values. No d-dimer available. Kidney functions are normal Review of Systems As for the H&P and chart Past Medical History Past Medical History: Hypertension, Osteoarthritis (OA) Additional Past Medical History / Comment(s): AORTIC VALVE -SLIGHT LEAK" History of Any Multi-Drug Resistant Organisms: None Reported Past Surgical History: Appendectomy, Orthopedic Surgery Additional Past Surgical History / Comment(s): LEFT KNEE-ARTHROSCOPIC SURGERY, RIGHT ANKLE SURGERY, RIGHT WRIST SURGERY, LEFT THUMB Past Anesthesia/Blood Transfusion Reactions: No Reported Reaction Past Psychological History: No Psychological Hx Reported Smoking Status: Never smoker Past Alcohol Use History: Occasional Past Drug Use History: None Reported - Past Family History Father Family Medical History: Cancer Additional Family Medical History / Comment(s): LUNG CANCER Medications and Allergies Home Medications Medication Instructions Recorded Confirmed Type Losartan Potassium [Cozaar] 50 mg PO DAILY 06/25/15 01/27/21 History Cyclobenzaprine [Flexeril] 10 mg PO HS PRN 01/27/21 01/27/21 History Metoprolol Succinate (ER) [Toprol 25 mg PO DAILY 01/27/21 01/27/21 History XL] Apixaban [Eliquis Starter Pack 5 - 10 mg PO DIRECTED 30 Days 01/28/21 Rx (for VTE)] #1 each Allergies Allergy/AdvReac Type Severity Reaction Status Date / Time No Known Allergies Allergy Verified 01/27/21 18:24 Physical Exam Vitals: Vital Signs Temp Pulse Pulse Pulse Resp BP BP 01/28/21 04:35 97.5 F L 66 16 109/73 01/28/21 00:30 70 17 131/87 01/27/21 22:22 97.8 F 59 L 18 131/91 01/27/21 18:43 18 01/27/21 17:51 60 18 131/94 01/27/21 17:26 98.4 F 65 20 153/90 Pulse Ox 01/28/21 04:35 96 01/28/21 00:30 94 L 01/27/21 22:22 97 01/27/21 18:43 01/27/21 17:51 98 01/27/21 17:26 97 Intake and Output 01/27/21 01/28/21 01/28/21 22:59 06:59 14:59 Intake Total 98.976 Balance 98.976 Intake: Intake, IV Titration 98.976 Amount Heparin Sod,Pork in 0.45% 98.976 NaCl 25,000 unit In 0.45 % NaCl 1 250ml.bag @ 18 UNITS/KG/HR 15.921 mls/hr IV .[id number] [facility] Rx#: [id number] Other: Voiding Method Toilet Toilet # Voids 1 1 Weight 88.451 kg GENERAL EXAM: Patient is alert and oriented and doesn't appear to be in any acute distress HEENT: Normocephalic. Normal reaction of pupils, equal size, normal range of ex traocular motion. No erythema or exudates in the throat. NECK: No masses, no nuchal rigidity. CHEST: No chest wall deformity. LUNGS: Equal air entry with no crackles or wheeze. HEART: S1 and S2 normal . Systolic murmur in the aortic area ABDOMEN: No hepatosplenomegaly, normal bowel sounds, no guarding or rigidity. SKIN: No rashes CENTRAL NERVOUS SYSTEM: No focal deficits. EXTREMITIES: No cyanosis, clubbing or edema. Results 01/28/21 07:30 01/28/21 07:30 Cardiac Enzymes 01/27/21 01/27/21 Range/Units 18:08 18:08 AST 29 (17-59) U/L Troponin I <0.012 (0.000-0.034) ng/mL Coagulation 01/27/21 01/27/21 01/28/21 Range/Units 18:08 23:50 07:30 PT 10.3 (9.0-12.0) sec APTT 20.6 L 120.4 H* 75.7 H (22.0-30.0) sec CBC 01/27/21 01/28/21 Range/Units 18:08 07:30 WBC 7.0 5.4 (3.8-10.6) k/uL RBC 4.91 5.24 (4.30-5.90) m/uL Hgb 16.0 16.8 (13.0-17.5) gm/dL Hct 46.0 49.9 (39.0-53.0) % Plt Count 181 187 (150-450) k/uL Comprehensive Metabolic Panel 01/27/21 01/28/21 Range/Units 18:08 07:30 Sodium 136 L 138 (137-145) mmol/L Potassium 4.6 5.1 (3.5-5.1) mmol/L Chloride 105 107 (98-107) mmol/L Carbon Dioxide 23 24 (22-30) mmol/L BUN 17 14 (9-20) mg/dL Creatinine 0.83 0.79 (0.66-1.25) mg/dL Glucose 93 88 (74-99) mg/dL Calcium 9.1 9.2 (8.4-10.2) mg/dL AST 29 (17-59) U/L ALT 33 (4-49) U/L Alkaline Phosphatase 90 (38-126) U/L Total Protein 6.7 (6.3-8.2) g/dL Albumin 3.9 (3.5-5.0) g/dL Current Medications Generic Name Dose Route Start Last Admin Trade Name Freq PRN Reason Stop Dose Admin Apixaban 10 mg 01/28/21 11:15 Apixaban 5 Mg Tab PO 02/03/21 11:05 BID [facility] Protocol Cyclobenzaprine HCl 10 mg 01/28/21 04:00 Cyclobenzaprine 10 Mg Tab PO HS PRN Muscle Pain Losartan Potassium 50 mg 01/28/21 09:00 01/28/21 09:23 Losartan 50 Mg Tab PO 50 mg DAILY [facility] Administration Metoprolol Succinate 25 mg 01/28/21 09:00 01/28/21 09:23 Metoprolol Succinate (Er) 25 Mg Tab.Er.24h PO 25 mg DAILY [facility] Administration Naloxone HCl 0.2 mg 01/27/21 19:09 Naloxone 0.4 Mg/Ml 1 Ml Vial IV Q2M PRN Opioid Reversal Intake and Output 01/27/21 01/28/21 01/28/21 22:59 06:59 14:59 Intake Total 98.976 Balance 98.976 Intake: Intake, IV Titration 98.976 Amount Heparin Sod,Pork in 0.45% 98.976 NaCl 25,000 unit In 0.45 % NaCl 1 250ml.bag @ 18 UNITS/KG/HR 15.921 mls/hr IV .[id number] [facility] Rx#: [id number] Other: Voiding Method Toilet Toilet # Voids 1 1 Weight 88.451 kg 01/28/21 07:30 01/28/21 07:30 EKG Interpretations (text) Sinus rhythm Assessment and Plan (1) Essential hypertension Current Visit: Yes Status: Acute Code(s): I10 - ESSENTIAL (PRIMARY) HYPERTENSION SNOMED Code(s): 80230107 (2) Pulmonary embolism Current Visit: Yes Status: Acute Code(s): I26.99 - OTHER PULMONARY EMBOLISM WITHOUT ACUTE COR PULMONALE SNOMED Code(s): 90645985 Plan: Continue current medical therapy with anticoagulation. Echo Cardigan showed mild right ventricular dilatation but no significant right ventricular strain. Patient could be continued on oral anticoagulation and be discharged home. Follow-up with Dr. Mclean.
--- NOTE | 2021-01-28 12:54 | P.DS ---
Providers Date of admission: 01/27/21 19:09 Expected date of discharge: 01/28/21 Attending physician: Jus Munson MD Consults: 01/27/21 19:10 Consult Physician Urgent Consulting Provider: Sudheer Mclean Consult Reason/Comments: pulmonary embolism Do you want consulting provider notified?: Yes Primary care physician: [facility] [place] Hospital Course: This is a 61-year-old male with past medical history significant for a provoked pulmonary emboli after hip surgery. 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 Patient was sent to the ER for further evaluation and was started on IV heparin drip. He underwent echocardiogram showing no evidence of right ventricular strain. His anticoagulation was transitioned to oral Eliquis. Patient remained hemodynamically stable with no evidence of hypoxia. He was cleared by cardiol thad for discharge home. His insurance will cover prescribed anticoagulation. He was advised to continue lifelong anticoagulation and follow-up with hematology for further workup. He will be discharged home in a stable condition. Physical exam: General: The patient is awake and alert, in no distress Eye: there is normal conjunctiva bilaterally. Neck: The neck is supple, there is no JVD. Cardiovascular: Normal S1-S2, no S3-S4, no murmurs. Respiratory: Lungs clear to auscultation bilaterally Gastrointestinal: Abdomen is soft, nontender Musculoskeletal: There is no pedal edema. Neurological:. Speech is normal. Skin: Skin is warm and dry Patient Condition at Discharge: Stable Plan - Discharge Summary Discharge Rx Participant: No New Discharge Prescriptions: New Apixaban [Eliquis Starter Pack (for VTE)] 5 - 10 mg PO DIRECTED 30 Days #1 each Continue Losartan Potassium [Cozaar] 50 mg PO DAILY Cyclobenzaprine [Flexeril] 10 mg PO HS PRN PRN Reason: Muscle Pain Metoprolol Succinate (ER) [Toprol XL] 25 mg PO DAILY Discharge Medication List Losartan Potassium [Cozaar] 50 mg PO DAILY 06/25/15 [History] Cyclobenzaprine [Flexeril] 10 mg PO HS PRN 01/27/21 [History] Metoprolol Succinate (ER) [Toprol XL] 25 mg PO DAILY 01/27/21 [History] Apixaban [Eliquis Starter Pack (for VTE)] 5 - 10 mg PO DIRECTED 30 Days #1 each 01/28/21 [Rx] Follow up Appointment(s)/Referral(s): Adarsh Maguire MD [Primary Care Provider] - 1-2 days Sudheer Mclean MD [STAFF PHYSICIAN] - 1 Week Discharge Disposition: HOME SELF-CARE
== END 2021-01-28 13:04 | disposition home or self-care (01) ==
LOC: EC 16:52 → 3SCARD 19:09
PROVIDERS: ADMIT Internal Medicine; ATTEND Internal Medicine
DX: I26.99 Other pulmonary embolism without acute cor pulmonale (principal); I11.9 Hypertensive heart disease without heart failure; Q23.1 Congenital insufficiency of aortic valve; M19.90 Unspecified osteoarthritis, unspecified site; Z79.899 Other long term (current) drug therapy; Z86.718 Personal history of other venous thrombosis and embolism; Z90.49 Acquired absence of other specified parts of digestive tract; Z96.649 Presence of unspecified artificial hip joint; Z98.890 Other specified postprocedural states; Z80.1 Family history of malignant neoplasm of trachea, bronchus and lung
CPT/HCPCS: 96376; 96365; 96366 ×2; 99285; 36415; 93005; 93306; 83880; 80053; 80048; 83605; 84484; 85025 ×2; 85610; 85730 ×2; 87635; G0378 ×2; J1644 ×2

== ENCOUNTER → 2021-01-27 | Outpatient (CLI) | payer BC ==
--- NOTE | 2021-01-27 11:55 | XR ---
EXAMINATION TYPE: XR chest 2V DATE OF EXAM: 01/27/2021 COMPARISON: None INDICATION: History of luminary emboli TECHNIQUE: Frontal and lateral views of the chest are obtained. FINDINGS: The heart size is normal. The pulmonary vasculature is normal. The lungs are clear. IMPRESSION: 1. No acute pulmonary process.
== END | disposition home or self-care (01) ==
LOC: RADXRMAIN 11:35
PROVIDERS: ATTEND Family Medicine
DX: Z09 Encounter for follow-up examination after completed treatment for conditions other than malignant neoplasm (principal); Z86.711 Personal history of pulmonary embolism
CPT/HCPCS: 71046

== ENCOUNTER → 2021-01-27 | Outpatient (CLI) | payer BC ==
--- NOTE | 2021-01-27 15:43 | CT ---
EXAMINATION TYPE: CT angio chest DATE OF EXAM: 01/27/2021 3:30 PM COMPARISON: CTA chest January 16, 2019 HISTORY: Elevated D-dimer, SOB CT DLP: 315.4 mGycm Automated exposure control for dose reduction was used. CONTRAST: CTA scan of the thorax is performed with IV Contrast, patient injected with 100 mL of Isovue 370, pul monary embolism protocol. MIP images are created and reviewed. FINDINGS: LUNGS: Some patchy dependent atelectasis. No suspicious consolidation. No pleural effusion or pneumot horax seen bilaterally. No suspicious nodules or masses. MEDIASTINUM: There is satisfactory enhancement of the pulmonary artery and its branches, this thrombu s beginning in the branching of the right middle and lower lobe pulmonary arteries axial image 70 hav ing significant lobar extension particularly in the right lower lobe. There is thrombus in the segme ntal arterial branch of the right upper lobe with subsegmental extension. Some left-sided thrombi and segmental branches left lower lobe axial image 76 and posteriorly axial image 83 with subsegmental e xtension. There are no greater than 1 cm hilar or mediastinal lymph nodes. No cardiomegaly or peric ardial effusion is seen. No new right ventricular dilatation. Ascending aorta measures up to 3.9 cm d iameter axial image 63. Poor opacification of aorta noted. OTHER: Vague linear 1.0 cm area of enhancement liver axial image 121 unchanged from prior presumed b enign. IMPRESSION: New bilateral acute pulmonary emboli greater in the right lung without CT evidence for RV strain. Critical results communicated to referring physician via telephone at time of dictation. A Document Only message has been documented for Sudheer Mclean MD in the [employer] Critical Result system on 01/27/2021 3:41 PM, Message ID [id number].
== END | disposition home or self-care (01) ==
LOC: RADCTMAIN 14:56
PROVIDERS: ATTEND Internal Medicine Cardiovascular Disease
DX: I26.94 Multiple subsegmental thrombotic pulmonary emboli without acute cor pulmonale (principal)
CPT/HCPCS: 71275; Q9967

== ENCOUNTER 2021-01-31 17:26 | Emergency (ER) | payer BC ==
[2021-01-31 17:33] VITALS: TEMP 97.6
[2021-01-31] MEDS ORDERED: ASPIRIN 81 MG PO STA (17:34)
[2021-01-31 18:06] LABS: Basophils # (A) 0.1 k/uL (0-0.2); Basophils % (A) 1 %; Eosinophils # (A) 0.6 k/uL (0-0.7); Eosinophils % (A) 9 %; HCT 45.4 % (39.0-53.0); HGB 15.7 gm/dL (13.0-17.5); Lymphocytes # (A) 1.2 k/uL (1.0-4.8); Lymphocytes % (A) 19 %; MCH 32.3 pg (25.0-35.0); MCHC 34.6 g/dL (31.0-37.0); MCV 93.2 fL (80.0-100.0); Monocytes # (A) 0.3 k/uL (0-1.0); Monocytes % (A) 4 %; Neutrophils # (A) 4.4 k/uL (1.3-7.7); Neutrophils % (A) 66 %; Platelet Count 212 k/uL (150-450); RBC 4.87 m/uL (4.30-5.90); RDW 12.7 % (11.5-15.5); WBC 6.6 k/uL (3.8-10.6)
[2021-01-31 18:08] LABS: Albumin 3.7 g/dL (3.5-5.0); Potassium 3.8 mmol/L (3.5-5.1); Total Bilirubin 1.1 mg/dL (0.2-1.3); Total Protein 6.5 g/dL (6.3-8.2)
[2021-01-31 18:13] LABS: Partial Thromboplastin Time 23.3 sec (22.0-30.0); Prothrombin Time 10.4 sec (9.0-12.0)
--- NOTE | 2021-01-31 18:26 | XR ---
EXAMINATION TYPE: XR chest 2V DATE OF EXAM: 01/31/2021 COMPARISON: 01/27/2021 HISTORY: Chest pain TECHNIQUE: FINDINGS: Heart and mediastinum are normal. Lungs are clear. Diaphragm is normal. Bony thorax is inta ct. Pulmonary vascularity is normal. There are chest leads. IMPRESSION: Normal chest. No change.
--- NOTE | 2021-01-31 18:32 | ED ---
Chest Pain HPI - General Chief Complaint: Chest Pain Stated Complaint: chest pain Time Seen by Provider: 01/31/21 17:26 Source: patient, EMS, RN notes reviewed, old records reviewed Mode of arrival: EMS Limitations: no limitations - History of Present Illness Initial Comments: 7-year-old male with a history of recently diagnosed pulmonary embolism who s tarted developing chest pain around 3:30 this afternoon he denies/10 severity squeezing-type pain EMS was called he was given nitroglycerin with total resolution of the pain. He was diagnosed with pulmonary medicine last week he was placed on blood thinner. He states that shortness breath he had with the pulmonary embolism was improved until today. He currently is not short of breath currently is pain-free no fevers chills nausea vomiting sweats or other symptoms at this time MD Complaint: chest pain - Related Data Home Medications Medication Instructions Recorded Confirmed Losartan Potassium [Cozaar] 50 mg PO DAILY 06/25/15 01/31/21 Cyclobenzaprine [Flexeril] 10 mg PO HS PRN 01/27/21 01/31/21 Metoprolol Succinate (ER) [Toprol 25 mg PO DAILY 01/27/21 01/31/21 XL] Apixaban [Eliquis Starter Pack See Taper PO DIRECTED 01/31/21 01/31/21 (for VTE)] Allergies Allergy/AdvReac Type Severity Reaction Status Date / Time No Known Allergies Allergy Verified 01/31/21 17:58 Review of Systems ROS Statement: Those systems with pertinent positive or pertinent negative responses have been documented in the HPI. ROS Other: All systems not noted in ROS Statement are negative. EKG Findings - EKG Results: EKG: interpreted by TOLU, sinus rhythm (Age-indeterminate) Past Medical History Past Medical History: Hypertension, Osteoarthritis (OA) Additional Past Medical History / Comment(s): AORTIC VALVE -SLIGHT LEAK" History of Any Multi-Drug Resistant Organisms: None Reported Past Surgical History: Appendectomy, Joint Replacement, Orthopedic Surgery Additional Past Surgical History / Comment(s): LEFT KNEE-ARTHROSCOPIC SURGERY, RIGHT ANKLE SURGERY, RIGHT WRIST SURGERY, LEFT THUMB, Right hip Past Anesthesia/Blood Transfusion Reactions: No Reported Reaction Past Psychological History: No Psychological Hx Reported Smoking Status: Never smoker Past Alcohol Use History: Occasional Past Drug Use History: None Reported - Past Family History Father Family Medical History: Cancer Additional Family Medical History / Comment(s): LUNG CANCER General Exam - General Exam Comments Initial Comments: This is a well-developed well-nourished awake alert oriented x3 male Limitations: no limitations General appearance: alert, in no apparent distress Head exam: Present: atraumatic, normocephalic, normal inspection Eye exam: Present: normal appearance, PERRL, EOMI. Absent: scleral icterus, conjunctival injection, periorbital swelling ENT exam: Present: normal exam, mucous membranes moist Neck exam: Present: normal inspection. Absent: tenderness, meningismus, lymphadenopathy Respiratory exam: Present: normal lung sounds bilaterally. Absent: respiratory distress, wheezes, rales, rhonchi, stridor Cardiovascular Exam: Present: regular rate, normal rhythm, normal heart sounds. Absent: systolic murmur, diastolic murmur, rubs, gallop, clicks GI/Abdominal exam: Present: soft, normal bowel sounds. Absent: distended, tenderness, guarding, rebound, rigid Extremities exam: Present: normal inspection, full ROM, normal capillary refill. Absent: tenderness, pedal edema, joint swelling, calf tenderness Back exam: Present: normal inspection Neurological exam: Present: alert, oriented X3, CN II-XII intact Psychiatric exam: Present: normal affect, normal mood Skin exam: Present: warm, dry, intact, normal color. Absent: rash Course Vital Signs 01/31/21 01/31/21 17:30 18:32 Temperature 97.6 F Pulse Rate 74 84 Respiratory 16 18 Rate Blood Pressure 109/75 113/73 O2 Sat by Pulse 96 98 Oximetry Chest Pain MDM - MDM Imaging shows no acute findings. 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
[2021-01-31 21:19] VITALS: BP 118/78; PULSE 88; RESP 16
== END 2021-01-31 21:20 | disposition home or self-care (01) ==
LOC: EC 17:26
DX: R07.9 Chest pain, unspecified (principal); I10 Essential (primary) hypertension; M19.90 Unspecified osteoarthritis, unspecified site; Z79.01 Long term (current) use of anticoagulants; Z79.899 Other long term (current) drug therapy; Z86.711 Personal history of pulmonary embolism; Z80.1 Family history of malignant neoplasm of trachea, bronchus and lung; Z90.49 Acquired absence of other specified parts of digestive tract
CPT/HCPCS: 36415; 71046; 80053; 83690; 83735; 83880; 84484; 85025; 85610; 85730; 93005; 99285

== ENCOUNTER → 2021-05-11 | Outpatient (CLI) | payer BC ==
--- NOTE | 2021-05-12 08:51 | CT ---
EXAMINATION TYPE: CT angio chest DATE OF EXAM: 05/11/2021 7:33 PM COMPARISON: CT dated 01/27/2021 HISTORY: HX PE, follow up CT DLP: 383.60 mGycm Automated exposure control for dose reduction was used. CONTRAST: CTA scan of the thorax is performed with IV Contrast, patient injected with 100 mL of Isovue 370, pul monary embolism protocol. MIP images were performed and reviewed. FINDINGS: Scattered tiny filling defects are seen within the segmental and subsegmental branches of the right u pper, middle and right lower lobe as well as the left lower lobe and to a lesser extent the lingula, markedly decreased in size compared to the previous CT scan, consistent with residual chronic nonoccl usive emboli. No definite filling defect is seen within the pulmonary trunk or main pulmonary artery. The pulmonary trunk measures 3.1 cm which could suggest pulmonary hypertension. Dilated left atrium a nd ascending aorta measuring up to 4.2 cm, please correlate with echocardiographic results. Grossly u nremarkable lungs. Patent central airways. No pleural or pericardial effusion. No pathologically enla rged lymph nodes in the chest. Questionable filling defect within the right lower lobe pulmonary vein s without obvious thrombus in the left atrium. Slightly prominent thyroid gland. Subtle hyperenhancing focus is seen in segment 4A of the liver, sta ble. Millimetric calculus is seen within the gallbladder neck without evidence of acute cholecystitis . Dense calcification is seen in the left renal cortex, progressed compared to 2019 CT scan are proba lou representing progressive calcification within milk of calcium cyst. Osteopenia. No aggressive bon e lesion. IMPRESSION: Residual nonocclusive chronic bilateral pulmonary emboli, significantly regressed in size as compared to the previous CT scan. No residual emboli within the pulmonary trunk or main pulmonary arteries. O ther interval changes and incidental findings as detailed above.
== END | disposition home or self-care (01) ==
LOC: RADCTMAIN 08:16
PROVIDERS: ATTEND Family Medicine
DX: I27.82 Chronic pulmonary embolism (principal)
CPT/HCPCS: 71275; Q9967

== ENCOUNTER → 2022-01-11 | Outpatient (CLI) | payer BC ==
--- NOTE | 2022-01-12 15:35 | CA ---
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 18 - 58 / 22 - 52 cm??? M-MODE Aortic Root Diameter MM 3.9 cm MV E Point Septal Separation 0.2 cm AV Cusp Separation MM 1.4 cm DOPPLER AV Peak Velocity 235.3 cm/s AV Peak Gradient 22.1 mmHg AV Mean Velocity 157.9 cm/s AV Mean Gradient 11.6 mmHg AV Velocity Time Integral 49.9 cm LVOT Peak Velocity 86.2 cm/s LVOT Peak Gradient 3.0 mmHg MV Area PHT 4.8 cm??? Mitral E Point Velocity 46.6 cm/s Mitral A Point Velocity 62.3 cm/s Mitral E to A Ratio 0.7 MV Deceleration Time 158.4 ms MV E' Velocity 6.2 cm/s Mitral E to MV E' Ratio 7.6 FINDINGS Left Ventricle Left ventricular ejection fraction is estimated at 50-55%. Mildly increased left ventricular wall thickness. Right Ventricle Normal right ventricular size and function. Right ventricular systolic pressure within normal limits. Right Atrium Normal right atrial size. Left Atrium Normal left atrial size. Mitral Valve Structurally normal mitral valve. Mild mitral regurgitation. Aortic Valve Bicuspid aortic valve. Mild aortic stenosis with a peak gradient of 22 mmHg and a mean gradient of 12 mmHg mild aortic regurgitation. Tricuspid Valve Structurally normal tricuspid valve. Pulmonic Valve Structurally normal pulmonic valve. Pericardium Normal pericardium. Aorta Normal size aortic root and proximal ascending aorta. CONCLUSIONS Normal LV systolic function Mild LVH Bicuspid aortic valve with mild stenosis and regurgitation Previewed by: Dr. Manjeet Whitney MD (Electronically Signed) Final Date: 12 January 2022 15:34
== END | disposition home or self-care (01) ==
LOC: RADECHMAIN 14:01
PROVIDERS: ATTEND Family Medicine
DX: I35.0 Nonrheumatic aortic (valve) stenosis (principal); I51.7 Cardiomegaly
CPT/HCPCS: 93306